=== PATIENT | female | born 1945 | race Caucasian/White ===

== ENCOUNTER → 2018-09-17 09:08 | Outpatient (CLI) | payer MEDICARE, OTHER, SELFPAY ==
--- NOTE | 2018-09-17 | DI.MRI.S_ITS ---
PROCEDURE: MR KNEE RT WO CON INDICATIONS: RIGHT ANTERIOR KNEE PAIN TECHNIQUE: Noncontrast sagittal PD fast spin echo and T2 fast spin echo with fat saturation, sagittal 3-D FLASH with fat saturation; coronal T1 spin echo and PD fast spin echo with fat saturation, and axial PD fast spin echo with fat saturation through the knee. COMPARISON: [facility] [place], CR, XR KNEE ARTHRITIC SERIES RT, 09/01/2018, 13:20. [facility], CR, XR BONE LENGTH SCANOGRAM, 09/17/2018, 10:06. FINDINGS: Image quality: Excellent. Menisci: There is mild fraying along the free edge of the lateral meniscus suggestive of minimal radial tearing. The medial meniscus demonstrates mild degenerative signal extending to the inferior articular surface in the posterior horn and free edge in the body suggestive of minimal degenerative tearing. The meniscal root ligaments appear intact. Cruciate ligaments: The anterior and posterior cruciate ligaments appear intact. Medial structures: The medial collateral ligament appears intact. The semimembranosus tendon insertions and meniscocapsular junction appear intact. Visualized portions of the pes anserinus tendons appear intact without associated bursal fluid collections. Lateral structures: The fibular collateral ligament is attenuated proximally at its origin consistent with sequelae of a mild sprain. The long and short heads of the biceps femoris tendon appear intact. The popliteus tendon appears intact. Iliotibial band appears normal. There is mild edema at the origin of the medial head of the gastrocnemius stress of a mild strain. Anterior structures: The quadriceps and patellar tendons appear intact. There is flattening of the articular surfaces along the patellofemoral compartment with shallow appearance of the trochlea. 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 Patellar alignment is grossly preserved. No edema in the infrapatellar fat pad. Bones and cartilage: No bone marrow contusions or fractures. There is severe cartilage thinning in the patellofemoral compartment with extensive full-thickness cartilage loss. There is associated subchondral edema and osteophytosis as well as bony remodeling. In the lateral compartment, there is mild cartilage thinning with chondral fissuring including a delaminating flap along the lateral tibial plateau. In the medial compartment, there is mild cartilage thinning and superficial chondral fraying. Joint space: There is a small joint effusion. No Pryor's cyst. IMPRESSION: 1. Dysplastic appearance of the trochlea with bony remodeling along the patellofemoral compartment associated with osteoarthritic changes including severe cartilage loss. 2. Cartilage degeneration in the lateral and medial compartments including a delaminating chondral flap along the lateral tibial plateau. 3. Mild tearing of the labrum as described. 4. Small joint effusion. Dictated by: Chencho Beck M.D. on 09/17/2018 at 14:54 Approved by: Chencho Beck M.D. on 09/17/2018 at 15:14
== END ==
PROVIDERS: PCP Registered Nurse; Visit Provider Orthopaedic Surgery
DX: M25.561 Pain in right knee (principal); S83.8X1A Sprain of other specified parts of right knee, initial encounter; M25.461 Effusion, right knee
CPT/HCPCS: 73721

== ENCOUNTER → 2018-12-10 11:08 | Outpatient (CLI) | payer MEDICARE, OTHER, SELFPAY ==
[2018-12-10 11:22] LABS: Bacteria Urine None Seen; RBC Urine None Seen (0-5/HPF); WBC Urine None Seen (0-5/HPF)
[2018-12-10 12:43] LABS: Add Manual Diff / Slide Review NO; Basophils Absolute Auto 0 /uL (0-100); Basophils Percent Auto 0.5 % (0-2); Eosinophils Absolute Auto 100 /uL (0-450); Eosinophils Percent Auto 2.2 % (2-4); Hematocrit 39.8 % (36-46); Hemoglobin 13.5 g/dL (12.0-16.0); Lymphocytes Absolute Auto 2100 /uL (1100-4500); Lymphocytes Percent Auto 36.9 % (25-40); Mean Corpuscular HGB Conc 33.9 % (30-36); Mean Corpuscular Hemoglobin 33.6 PG (26-34); Mean Corpuscular Volume 99.3 fL (80-100); Monocytes Absolute Auto 600 /uL (0-900); Monocytes Percent Auto 10.5 % (3-14); Neutrophils Absolute Auto 2800 /uL (1500-7000); Neutrophils Percent Auto 49.9 % (50-75); Platelet Count 232 X10^3/uL (150-400); Red Blood Cell Count 4.01 X10^6/uL (4.0-5.2); Red Cell Distribution Width 13.2 % (11.6-14.8); White Blood Cell Count 5.6 X10^3/uL (4.5-11.0)
[2018-12-10 12:53] LABS: Appearance Urine UA CLEAR; Bilirubin Urine UA NEGATIVE (NEGATIVE); Color Urine UA YELLOW; Glucose Urine UA NEGATIVE (Negative); Ketones Urine UA NEGATIVE (NEGATIVE); Leukocyte Esterase Urine UA NEGATIVE (NEGATIVE); Nitrite Urine UA NEGATIVE (Negative); Occult Blood Urine UA NEGATIVE (Negative); Protein Urine UA NEGATIVE (Negative); Urobilinogen Urine UA 0.2 E.U./dL (0.2)
[2018-12-10 12:55] LABS: Hemoglobin A1C% w Est Avg Glu 5.4 % (4.0-6.0)
[2018-12-10 12:56] LABS: BUN Creatinine Ratio 23.3 (6-22); Blood Urea Nitrogen 21 mg/dL (7-17); Calcium 9.6 mg/dL (8.4-10.2); Carbon Dioxide 28 mmol/L (22-32); Chloride 104 mmol/L (98-107); Estimated Glomerular Filt Rate > 60.0 mL/min (>60); Glucose 86 mg/dL (80-110); HEMOLYSIS < 15 (0-50); Potassium 4.7 mmol/L (3.4-5.1); Sodium 141 mmol/L (137-145)
[2018-12-10 13:14] LABS: pH Urine UA 6.5 (4.5-8.0)
[2018-12-10 13:15] LABS: Culture Indicated Urine Cult Not Indicated; Mucus Urine 3+ (Negative); Squamous Epithelial Cell Urine 0-1 /HPF (0-5/HPF)
== END ==
PROVIDERS: Family Provider Registered Nurse; PCP Registered Nurse; Visit Provider Orthopaedic Surgery
DX: Z01.818 Encounter for other preprocedural examination (principal); Z01.812 Encounter for preprocedural laboratory examination; N39.9 Disorder of urinary system, unspecified; Z13.1 Encounter for screening for diabetes mellitus; R73.9 Hyperglycemia, unspecified
CPT/HCPCS: 36415; 80048; 81001; 83036; 85025; 93005; 93010

== ENCOUNTER 2019-01-20 12:01 | Inpatient (IN) | payer MEDICARE, OTHER, SELFPAY ==
[2019-01-12 13:51] VITALS: BMI 25.8
[2019-01-20] VITALS (12 sets, daily range): BP systolic 106–123; BP diastolic 40–71; PULSE 67–79; RESP 12–18; TEMP 35.9–36.7; O2SAT 93–99; BMI 25.8
--- NOTE | 2019-01-20 06:00 | DI.RAD.S_ITS ---
PROCEDURE: XR KNEE RT 1TO2V INDICATIONS: post op TECHNIQUE: 3 view(s) of the knee acquired. [facility]IC SERIES LT, 09/29/2018, 15:37. FINDINGS: Bones: Patient is status post knee joint arthroplasty. Hardware components are in expected positions. Visualized bony structures are intact. Soft tissues: Overlying postoperative changes are noted. Expected postoperative changes within the overlying soft tissues are present there is a soft tissue air, edema, and fluid. A surgical drainage catheter is seen overlying the anterolateral margin of the knee. IMPRESSION: Expected postoperative changes related to a total right knee arthroplasty. Dictated by: Karan Jc M.D. on 01/20/2019 at 16:52 Approved by: Karan Jc M.D. on 01/20/2019 at 16:54
[2019-01-20] MEDS: LACTATED RINGERS 1,000 ML 42 ML IV ×2 (12:58→15:42)
[2019-01-20] MEDS: CELECOXIB 200 MG CAPSULE PO (13:02)
[2019-01-20] MEDS: PREGABALIN 75 MG CAPSULE PO (13:02)
[2019-01-20] MEDS: ACETAMINOPHEN 325 MG TABLET 975 MG PO ×2 (13:02→21:33)
[2019-01-20] MEDS: VANCOMYCIN 1,000 MG/200 ML PIGGYBACK 200 MG IV (13:50)
--- NOTE | 2019-01-20 14:49 | PM.PREOP ---
Pre-operative Note Interval Note History & Physical reviewed/Exam performed by Physician: Yes Changes to H&P: No
--- NOTE | 2019-01-20 14:50 | PM.OP.1 ---
Operative Date/Time/Diagnoses Date of procedure: 01/20/19 Time of procedure: 16:04 Pre-op diagnosis: Right knee OA Post-op diagnosis: same Procedure & Clinicians Procedure: Right total knee arthroplasty Same procedure as scheduled: Yes Indications: The patient has had progressively worsening right knee pain with radiographic changes consistent with arthritis. Non-operative management has failed and the patient has requested total knee replacement. The risks, benefits and alternatives to surgery were discussed with the patient prior to proceeding. Risks discussed included, but were not limited to, failure to relieve pain, stiffness, infection, nerve damage, deep venous thrombosis, pulmonary embolism, stroke, coma, heart attack, permanent paralysis and , as well as the potential need for eventual revision of the prosthetic. Surgeon: Ann Mayer Med Surg Rn: Barbara Jenkins Anesthesia Type: General and Spinal Operative Notes Findings: Severe right knee patellofemoral arthritis, adequate bone, good stability Closure Type: primary Specimen(s): none sent Prosthetic devices, grafts, tissues, transplants, or devices: Mayer and Nephew Kyleney BCS 2 size 4 femur, size 3 tibia,+9 poly, 32 x 7.5 patella Applied: drain(s) Estimated Blood Loss (mL): 250 Blood products transfused: none Tourniquet time (min): 65 Procedure in detail: The patient was seen in the pre-operative area, where the patient identified the right knee as the operative site and this was marked with my initials. The patient received pre-operative antibiotics, and was taken to the operating room and placed on the operative table in the supine position. After satisfactory anesthesia, a radio time salesperson out was performed. The right leg was encircled with a tourniquet about the proximal thigh, and the leg was prepared from the toes to the tourniquet with ChloroPrep in the usual fashion and draped through sterile drapes. The leg was elevated and exsanguinated with Eschmark bandage and the tourniquet inflated to [250] mmHg pressure. The knee was approached through an approximately 18 cm incision centered over the patella and carried into the knee through a medial parapatellar arthrotomy. A portion of the medial and lateral meniscus was resected. Soft tissue was carefully mobilized around the patella the patella was measured with a caliper. Bone was resected from the patella and the patellar height was reconstituted with up an appropriate sized patellar component. A cover was then placed on the patella. A small amount of additional medial and lateral meniscus was resected. The visionare guide fit well to the distal femur. It looked like an appropriate distal femoral cut and the cut was made without difficulty. The rotation was assessed and the appropriate size femoral guide was placed on the distal femur and finishing cuts were made. There was no evidence of notching. The anterior, posterior and chamfer cuts were then made. The posterior osteophytes and soft tissues were then removed. The posterior capsule was injected with part of a mixture of 60 ml 0.25% Marcaine mixed with 20 ml Exparel for post operative pain control. The remainder of this mixture was injected into the capsule and subcutaneous tissues during cement curing. The tibia was prepared and the visionaire guide fit well to the distal tibia. The rotation was assessed. The patient was placed in extension residual medial and lateral meniscus as well as any residual bone was carefully resected. [No] additional tibia was resected. Hemostasis was achieved especially posteriorly. Additional local was injected into the posterior capsule. The extension gap was assessed and additional releases for gap balancing were performed as necessary. It was checked with the gap neuro ophthalmologist. The femoral component was trial was placed and the notch was finished. Trial tibial and femoral components were then placed and the knee placed through a range of motion. Range of motion was [0-130], with good stability throughout the range. The trials were then removed, and the tibia was finished. The bone was prepared with pulsatile lavage, and dried with a sponge. Cement was applied and the final prosthetics placed. Excess cement was removed during and after cement curing. A brief Betadine soak was performed. After confirming there was no extruded cement posteriorly, the final tibial insert was placed. The knee was copiously irrigated and the tourniquet deflated. Hemostasis was obtained with the Bovie. A drain was placed and brought out superolaterally. The capsule was closed with interrupted Vicryl suture. The subcutaneous layer was closed with barbed sutures, and the skin with a running 3-0 V-Lock suture and Surgical glue. An Aquacel Ag dressing was applied and the patient was taken to recovery having tolerated the procedure well. Complications: none Post-operative Condition: stable Disposition: Acute Care Plan for aftercare: The patient will be maintained on a standard total knee replacement protocol with weight bearing as tolerated. The patient will receive aspirin and sequential compression devices for DVT prophylaxis. The patient will be discharged home when safe for the home environment.
[2019-01-20] MEDS: CEFAZOLIN 2 GM/100 ML FROZ.PIGGY IV ×2 (15:15→22:33)
[2019-01-20] MEDS: BUPIVACAINE LIPOSOME 266 MG/20 ML VIAL INJ (15:43)
[2019-01-20] MEDS: TRANEXAMIC ACID 1,000 MG VIAL 1000 MG INJ ×2 (15:43→15:58)
[2019-01-20] MEDS: BUPIVACAINE 0.25% W/ EPI 30 ML VIAL 60 ML INJ (15:43)
[2019-01-20] MEDS: SODIUM CHLORIDE IRRIG SOLUTION 250 ML, POVIDONE-IODINE SPONGE STICKS 1 APPLIC IRR (15:45)
--- NOTE | 2019-01-20 15:50 | SUR.OPER ---
Supine on padded OR bed. Pillow under head, arms secured on padded armboards <90 degree abduction. Safety belt across torso. Non-operative leg secured with tape over blanket over lower leg. Operative leg secured in DeMayo/Cody positioner. Foam padded brace at thigh of operative leg.
[2019-01-20] MEDS: LACTATED RINGERS 1,000 ML 125 ML IV (19:32)
[2019-01-20] MEDS: diphenhydrAMINE 50 MG/ML VIAL 25 MG IV (21:32)
[2019-01-20] MEDS: DOCUSATE 100 MG CAPSULE PO (21:33)
[2019-01-20] MEDS: DULOXETINE 30 MG CAPSULE 60 MG PO (21:33)
[2019-01-20] MEDS: MELATONIN 3 MG TABLET 6 MG PO (21:33)
[2019-01-20] MEDS: ASPIRIN EC 81 MG TABLET PO (21:33)
--- NOTE | 2019-01-20 23:44 | PC.NURSE ---
Evening Shift Note Patient has not voided this shift from last known void at 1400 prior to surgery, VSS, IV fluids and adequate oral intake. Patient attempted to void 2 times this shift on bedside commode and unsuccessful. Unable to bladder scan patient at 2200, PACU bladder scanner with battery and staff unable to locate batteries at the moment. journeyman molder aware and able to borrow bladder scanner from ED. Patient bladder scanned prior to this RN leaving by night clerk OPEN HEARTH DOOR LINER and patient with volume of 195. Encourage oral fluids and night clerk RN to follow up.
[2019-01-21] MEDS: LACTATED RINGERS 1,000 ML 125 ML IV (04:01)
[2019-01-21 04:15] VITALS: BP 125/74; PULSE 81; RESP 16; TEMP 36.9; O2SAT 95
[2019-01-21 05:53] LABS: Hematocrit 36.8 % (36-46); Hemoglobin 12.3 g/dL (12.0-16.0)
[2019-01-21] MEDS: LEVOTHYROXINE 25 MCG TABLET PO (06:39)
[2019-01-21] MEDS: CEFAZOLIN 2 GM/100 ML FROZ.PIGGY IV (06:40)
[2019-01-21 07:50] VITALS: BP 106/57; PULSE 71; RESP 16; TEMP 36.1; O2SAT 99
[2019-01-21] MEDS: ACETAMINOPHEN 325 MG TABLET 975 MG PO (08:30)
[2019-01-21] MEDS: DOCUSATE 100 MG CAPSULE PO (08:30)
[2019-01-21] MEDS: ASPIRIN EC 81 MG TABLET PO (08:30)
[2019-01-21] MEDS: PANTOPRAZOLE 20 MG TABLET PO (08:30)
[2019-01-21] MEDS: SODIUM CHLORIDE 0.9% FLUSH 10 ML IV (08:57)
[2019-01-21] MEDS: diphenhydrAMINE 50 MG/ML VIAL 25 MG IV (09:25)
--- NOTE | 2019-01-21 09:25 | CM.IDA ---
Discharge Planning/Care Management CM Discharge Assessment Start: 01/21/19 09:22 Freq: Status: Active Protocol: Document 01/21/19 09:22 JIMMY (Rec: 01/21/19 09:25 JIMMY [id number]) Discharge Planning Assessment Assigned Booky DENISE Kline DPOA/Assigned Designee Name Bre () Contact Information [phone] Advance Directives? Yes Advance Directives on File No History Provided By Patient Prior Living Arrangements House Household Members spouse Type of transporation used prior to Drives own vehicle admit Independent with ADL's Yes Is patient alert and oriented? Yes Patient/Family Preference OP PT Therapy Barriers to Discharge No Comment Pt has planned for DC home w/ spouse to assist. Therapy eval still pending, likely DC home today if pt able to progress today w/therapy team, outpt PT . Likely no barriers to safe DC home today. Discharge Plan Home Transportation Arrangement Family Referrals Initiated None needed Review Status In Process
--- NOTE | 2019-01-21 11:18 | PM.DS.1 ---
History of Present Illness History of Present Illness Date Patient Seen: 01/21/19 Time Patient Seen: 11:18 Chief complaint: [id number] Narrative: The patient has had progressively worsening right knee pain with radiographic changes consistent with arthritis. Non-operative management has failed and the patient has requested total knee replacement. The risks, benefits and alternatives to surgery were discussed with the patient prior to proceeding. Risks discussed included, but were not limited to, failure to relieve pain, stiffness, infection, nerve damage, deep venous thrombosis, pulmonary embolism, stroke, coma, heart attack, permanent paralysis and , as well as the potential need for eventual revision of the prosthetic. Discharge Providers Provider Date of admission: 01/20/19 12:01 Discharge Date: 01/21/19 Primary care physician: SIDNEY Reyes Consults: 01/12/19 14:41 Consult to Respiratory Therapy Evaluate & Treat Comment: INPT 01/20 LAURA-No CPAP Physician Instructions: Evaluate and treat 01/20/19 06:00 Consult to Anesthesiology Routine Comment: Consulting Provider: Anesthesiologist Reason for consultation: Regional block for post operative pain control 01/20/19 12:53 Consult to Respiratory Therapy Evaluate & Treat Comment: Physician Instructions: Evaluate and treat 01/20/19 18:18 Consult to Discharge Planning Routine Comment: Consult to Physical Therapy Evaluate & Treat Comment: Physician Instructions: postop TKA protocol Consult to Respiratory Therapy Evaluate & Treat Comment: Physician Instructions: Evaluate and treat Discharge provider: Nora Coe PA-C Summary Hospital Course Discharge Diagnosis: s/p right total knee arthroplasty GERD Migraines Depression Distant history of hepatitis, seronegative Depression Hospital Course: Amarilis presents for a right total knee arthroplasty with Dr. Mayer. Hospital course was unremarkable. On postop day 1. Patient was ready to discharge home. Drain removed prior to discharge. Dressing with CDI. She was eating and voiding without difficulty or assistance. ASA for DVT prophylaxis. She mobilized with physical therapy throughout her stay. She has her medications at home. Requesting Zofran for nausea. Status at Discharge Functional status at discharge: uses cane/walker Exam Vital Signs (past 8 hours): - 01/21/19 04:15 01/21/19 07:50 Temperature 98.4 F 97.0 F L Pulse Rate 81 71 Respiratory Rate 16 16 Blood Pressure 125/74 106/57 L Pulse Oximetry 95 99 Oxygen Delivery Method Room Air Oxygen Flow Rate 0 Narrative Exam Narrative: Patient is sitting at bedside chair in no acute distress. She is alert and oriented x3. Calves are soft, compressible, nontender bilaterally. Pulses are symmetrical. Right knee dressing CDI. Drain in place. She is able to actively dorsiflex plantar flex. No complaints of pain this morning. She is eager to go home today. Pain well controlled. Objective Labs Result Diagrams: 01/21/19 05:16 Labs: Laboratory Results - last 24 hr 01/21/19 05:16 Hgb 12.3 Hct 36.8 Discharge Plan Discharge Plan Patient Disposition: Home Discharge Med Rec/Prescriptions Prescriptions: New acetaminophen 325 mg Tablet 975 mg PO TID Qty: 60 RF: 0 aspirin 81 mg Tablet,Delayed Release (Dr/Ec) 81 mg PO BID Qty: 60 RF: 0 docusate sodium [DOK] 100 mg Capsule 100 mg PO BID Qty: 60 RF: 0 oxycodone 5 mg Tablet 5 mg PO Q3HR PRN (Reason: Pain, Moderate (4-6)) Qty: 10 RF: 0 ondansetron HCl [Zofran] 4 mg tablet 4 mg PO Q8H PRN (Reason: nausea and vomiting) Qty: 20 RF: 0 Continued levothyroxine 25 mcg Tablet 25 mcg PO DAILY Qty: 0 RF: 0 Aimovig Autoinjector (2 Pack) 70 mg/mL auto-injector 140 mg SUBCUT QMONTH Qty: 1 RF: 11 nystatin 100,000 unit/gram cream 1 applictn TOP BID PRN (Reason: Rash) RF: 0 [CMP ESTRIOL CREAM] 0.2 % Vaginal PRN PRN (Reason: Vaginal Dryness) RF: 0 melatonin 3 mg Tablet 6 mg PO BEDTIME RF: 0 omeprazole 20 mg Capsule,Delayed Release(Dr/Ec) 20 mg PO DAILY RF: 0 duloxetine 60 mg Capsule,Delayed Release(Dr/Ec) 60 mg PO BEDTIME RF: 0 Follow up/Referrals: Morena Mendez ARNP [Primary Care Provider] - Ann Mayer MD [Physician] - Provider Discharge Instructions Cold/Heat Therapy: as needed Skin/Wound/Dressing Care Report to your healthcare provider any signs of infection, such as:: chills, fever and increased pain Dressing: as needed Visit Report/Discharge Packet Instructions: DI for Knee Replacement Discharge Data Primary Care Provider: Morena Mendez VTE Deep Vein Thrombosis/Pulmonary Embolism Present on Admission: No
[2019-01-21 11:25] VITALS: BP 99/49; PULSE 73; RESP 16; TEMP 37; O2SAT 97
--- NOTE | 2019-01-21 11:36 | PT.IIE ---
Current Diagnoses Unilateral primary osteoarthritis, right knee (01/20/19) Surgery Performed Operation Date: 01/20/19 14:15 Actual Procedures p Total Knee Arthroplasty(Right) - Ann Mayer MD Surgical History (Last Updated 01/12/19 @ 14:19 by Shira Fletcher RN) History of arthroplasty of left knee (Acute ~2008) History of surgery (Acute) History of third molar tooth extraction Hx of bilateral cataract extraction (Acute) Medical History (Last Updated 01/12/19 @ 14:21 by Shira Fletcher RN) Depression (Acute) GERD (gastroesophageal reflux disease) (Acute) Hearing impaired (Acute) Hepatitis (Acute ~1972) HLD (hyperlipidemia) (Acute) Hypothyroidism (Acute) Migraines (Acute) Pneumonia (Acute ~1987) SCC (squamous cell carcinoma) (Acute) Sleep apnea (Acute) 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 Able to make needs known. Mobility and Gait Pt was I with mobility and ambulation prior to surgery. Pt notes that she moved slowly d/t pain in knee. Activities of Daily Living and IADL's Pt was I with ADLs and IADLs prior to surgery. Prior Functional Level (Other details) Pt was able to drive. Pt notes that she is still very active . Social History Household Members spouse Living Arrangements House Number of Floors (Floors) One Floor Number of Stairs To Enter/Railing? 2 [place], no railing. Home Environment Standard Height Toilet,Walk in Shower Home Equipment Front Wheel Walker,Straight Cane,Crutches,Raised Toilet Seat w/Armrests,Hand Held Shower,Grab Bars In Shower Employment Status Retired Additional Social History Comment Pt lives in one story home on [facility] with spouse Bre. Pt's sister in law lives nearby and is a PT. She will be available to help pt return home. Pt has 2 [place]Y house either from front or garage, both without railings. Pt has multiple ADs that have been fitted for her. Pt has a raised toilet seat with armrests that can double as a shower seat. M2 PT-IP Current Condition Start: 01/21/19 08:13 Freq: NEEDED Status: Active Protocol: Document 01/21/19 09:53 JG (Rec: 01/21/19 11:19 JG [id number]) Physical Therapy Current Condition Current Condition Evaluation Date 01/21/19 Treatment Diagnosis R TKA, difficulty walking, limited activity tolerance Onset Date 01/20/19 Weight Bearing Status Weight Bearing Status Weight Bear as Tolerated M3 PT-IP Subjective Start: 01/21/19 08:13 Freq: NEEDED Status: Active Protocol: Document 01/21/19 09:53 JG (Rec: 01/21/19 11:19 JG [id number]) Subjective Physical Therapy Visit Type Type Initial Evaluation Visit Start Time 09:53 Visit Stop Time 10:22 Total Visit Minutes 29 Notes IE led by ELIZABETH Sandoval, supervised by PT Michelet Number of REFINERY OPERATOR LIGHT ENDS RECOVERY Visits 0 Physical Therapy Visit Comments Patient Comments I am actually feeling really good. I feel like I am ready to go home. Patient Goals Get up and moving, return home Therapy Pain Assessment Pain When Pain Assessed At Rest Pain Present Pain Present Denied Pain M4 PT-IP Mobility and Gait Start: 01/21/19 08:13 Freq: NEEDED Status: Active Protocol: Document 01/21/19 09:53 JG (Rec: 01/21/19 11:19 JG [id number]) PT-Bed Mobility Assessment Rolling Type of Rolling Roll to Left Level of Assist Standby Assistance Supine to Sit Supine to Sit Standby Assistance Scooting Scooting to Edge of Bed Standby Assistance PT-Transfer Assessment Sit to and From Stand Sit to and from Stand Standby Assistance Equipment Transfer Assistive Device Gait Belt,Front Wheeled Walker Orthotic/Prosthetic Devices or Brace: No Transfers Transfer Destination Chair,Toilet Transfer Technique Stand Step Pivot Transfer Ability Level of Assist Standby Assistance,Contact Guard Assistance Comments Mobility Comments Pt in bed upon assessment. Resting BP 110/68. Pt stated that she needed to go to the bathroom. Pt was SBA for all bed mobility and CGA for sit to stand and ambulation to toilet. Pt able to perform self care with CGA for balance . Pt then able to ambulate ~ 250 ft with gait 90% WNL and SBA. Pt ambulated with step through gait pattern and slightly excess L sided weight shift. Pt transferred to chair at end of session with SBA. Pt left in chair with call light and needs within reach. Gait Assessment Gait Gait Assistance Required: Standby Assistance,Contact Guard Assist Distance (Feet) 250 Able to Maintain Weight Bearing Status Yes During Gait Assistive Devices Assistive Device Gait Belt,Front Wheeled Walker Orthotic/Prosthetic Devices or Brace: No Gait Deviations General Gait Pattern Antalgic,Lateral Trunk Lean Factors Limiting Gait Function Factors Limiting Gait Function Decreased Activity Tolerance, Limited Range of Motion,Poor Balance Comments Gait Comments see mobility section Stair Climbing Assessment Evaluation Level of Assist On Stairs Contact Guard Assistance, Minimal Assistance Devices Stair Climbing Assistive Devices Right Railing Technique/Endurance Stair Climbing Direction Ascend and Descend Stair Climbing Technique Step to Step Number of Steps Climbed 3 Query Text: Stair Climbing Set # Repetitions (reps) 4 Comments Stair Climbing Comments Pt educated to complete stairs using up with the good, down with the bad step to gait pattern. Pt able to ascend stairs with initial OPERATION MANAGER f/b CGA for last 2 rounds. Pt demonstrated initial LOB during first step descent of stairs using OPERATION MANAGER but able to self correct. Pt then used railing as well as OPERATION MANAGER for initial rounds. With cuing to activate quadriceps to help stabilize after placing R leg during descent, pt able to descend with OPERATION MANAGER but no railing. PT-Balance Assessment Sitting Balance and Reactions Static Sitting Balance Ability Good Dynamic Sitting Balance Ability Good Standing Balance and Reactions Static Standing Balance Ability Good Dynamic Standing Balance Ability Good Device Used FWW M5 PT-IP Objective Assessments Start: 01/21/19 08:13 Freq: NEEDED Status: Active Protocol: Document 01/21/19 09:53 Marcel (Rec: 01/21/19 11:19 Marcel [id number]) Orientation Orientation/Cognition Level of Alertness Alert Orientation Name,Age,Birthday,Month,Date, Year,Day of Week,Place, Situation Language Function Ability No Deficits Noted Safety Awareness Understands Safety Issues Memory Description No Deficits Noted Comments No noted cognitive or communication deficits. Pt demonstrated good safety awareness. Gross Range of Motion Upper Extremity ROM Assessment Within Functional Limits Lower Extremity ROM Assessment Right Impaired Strength Upper Extremity Strength Assessment Within Functional Limits Lower Extremity Strength Assessment Right Impaired M6 PT-IP Treatment Start: 01/21/19 08:13 Freq: NEEDED Status: Active Protocol: Document 01/21/19 09:53 JG (Rec: 01/21/19 11:19 JG [id number]) Physical Therapy Treatment Education Education Provided Weight Bearing Status,Post-Op Packet,Safety Other Treatments Other Treatment Performed Educated pt and caregiver on navigating stairs and how to assist. M7 PT-IP Assessment and Plan Start: 01/21/19 08:13 Freq: NEEDED Status: Active Protocol: Document 01/21/19 09:53 JG (Rec: 01/21/19 11:19 JG [id number]) PT Summary Assessment and Plan Potential Rehabilitation Potential Excellent Status of Condition at Evaluation Stable Summary Impairments Pain,Strength,Balance, Transfers,Gait,Activity Tolerance Progress Towards Goals Safe For Discharge Assessment Summary Pt is 73 yo female 1 day s/p R TKA. Pt reports I PLOF and has good social support at home from spouse Bre and sister in law who is a PT. Pt also has OP PT scheduled starting on 01/24/19. Pt required no more than SBA for bed mobility and initial CGA for transfers. Pt did require min A with OPERATION MANAGER for descent of stairs to prevent LOB. Disc with pt's spouse how to assist and pt's sister in law will be available to help them return home. Pt safe for discharge to home with assist once medically cleared. Frequency of Treatment Frequency Of Treatment Discharge Recommendations To Nursing Amount of Assist Needed Standby Assistance Discharge Recommendations PT Discharge Recommendations Home with Assistance, Outpatient PT
--- NOTE | 2019-01-21 11:39 | PT.IIE ---
Current Diagnoses Unilateral primary osteoarthritis, right knee (01/20/19) Surgery Performed Operation Date: 01/20/19 14:15 Actual Procedures p Total Knee Arthroplasty(Right) - Ann Mayer MD Surgical History (Last Updated 01/12/19 @ 14:19 by Shira Fletcher RN) History of arthroplasty of left knee (Acute ~2008) History of surgery (Acute) History of third molar tooth extraction Hx of bilateral cataract extraction (Acute) Medical History (Last Updated 01/12/19 @ 14:21 by Shira Fletcher RN) Depression (Acute) GERD (gastroesophageal reflux disease) (Acute) Hearing impaired (Acute) Hepatitis (Acute ~1972) HLD (hyperlipidemia) (Acute) Hypothyroidism (Acute) Migraines (Acute) Pneumonia (Acute ~1987) SCC (squamous cell carcinoma) (Acute) Sleep apnea (Acute) 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 Able to make needs known. Mobility and Gait Pt was I with mobility and ambulation prior to surgery. Pt notes that she moved slowly d/t pain in knee. Activities of Daily Living and IADL's Pt was I with ADLs and IADLs prior to surgery. Prior Functional Level (Other details) Pt was able to drive. Pt notes that she is still very active . Social History Household Members spouse Living Arrangements House Number of Floors (Floors) One Floor Number of Stairs To Enter/Railing? 2 [place], no railing. Home Environment Standard Height Toilet,Walk in Shower Home Equipment Front Wheel Walker,Straight Cane,Crutches,Raised Toilet Seat w/Armrests,Hand Held Shower,Grab Bars In Shower Employment Status Retired Additional Social History Comment Pt lives in one story home on [facility] with spouse Bre. Pt's sister in law lives nearby and is a PT. She will be available to help pt return home. Pt has 2 [place] house either from front or garage, both without railings. Pt has multiple ADs that have been fitted for her. Pt has a raised toilet seat with armrests that can double as a shower seat. M2 PT-IP Current Condition Start: 01/21/19 08:13 Freq: NEEDED Status: Active Protocol: Document 01/21/19 09:53 JG (Rec: 01/21/19 11:19 JG [id number]) Physical Therapy Current Condition Current Condition Evaluation Date 01/21/19 Treatment Diagnosis R TKA, difficulty walking, limited activity tolerance Onset Date 01/20/19 Weight Bearing Status Weight Bearing Status Weight Bear as Tolerated M3 PT-IP Subjective Start: 01/21/19 08:13 Freq: NEEDED Status: Active Protocol: Document 01/21/19 09:53 JG (Rec: 01/21/19 11:19 JG [id number]) Subjective Physical Therapy Visit Type Type Initial Evaluation Visit Start Time 09:53 Visit Stop Time 10:22 Total Visit Minutes 29 Notes IE led by ELIZABETH Sandoval, supervised by PT Michelet Number of AIRPLANE TECHNICIAN Visits 0 Physical Therapy Visit Comments Patient Comments I am actually feeling really good. I feel like I am ready to go home. Patient Goals Get up and moving, return home Therapy Pain Assessment Pain When Pain Assessed At Rest Pain Present Pain Present Denied Pain M4 PT-IP Mobility and Gait Start: 01/21/19 08:13 Freq: NEEDED Status: Active Protocol: Document 01/21/19 09:53 JG (Rec: 01/21/19 11:19 JG [id number]) PT-Bed Mobility Assessment Rolling Type of Rolling Roll to Left Level of Assist Standby Assistance Supine to Sit Supine to Sit Standby Assistance Scooting Scooting to Edge of Bed Standby Assistance PT-Transfer Assessment Sit to and From Stand Sit to and from Stand Standby Assistance Equipment Transfer Assistive Device Gait Belt,Front Wheeled Walker Orthotic/Prosthetic Devices or Brace: No Transfers Transfer Destination Chair,Toilet Transfer Technique Stand Step Pivot Transfer Ability Level of Assist Standby Assistance,Contact Guard Assistance Comments Mobility Comments Pt in bed upon assessment. Resting BP 110/68. Pt stated that she needed to go to the bathroom. Pt was SBA for all bed mobility and CGA for sit to stand and ambulation to toilet. Pt able to perform self care with CGA for balance . Pt then able to ambulate ~ 250 ft with gait 90% WNL and SBA. Pt ambulated with step through gait pattern and slightly excess L sided weight shift. Pt transferred to chair at end of session with SBA. Pt left in chair with call light and needs within reach. Gait Assessment Gait Gait Assistance Required: Standby Assistance,Contact Guard Assist Distance (Feet) 250 Able to Maintain Weight Bearing Status Yes During Gait Assistive Devices Assistive Device Gait Belt,Front Wheeled Walker Orthotic/Prosthetic Devices or Brace: No Gait Deviations General Gait Pattern Antalgic,Lateral Trunk Lean Factors Limiting Gait Function Factors Limiting Gait Function Decreased Activity Tolerance, Limited Range of Motion,Poor Balance Comments Gait Comments see mobility section Stair Climbing Assessment Evaluation Level of Assist On Stairs Contact Guard Assistance, Minimal Assistance Devices Stair Climbing Assistive Devices Right Railing Technique/Endurance Stair Climbing Direction Ascend and Descend Stair Climbing Technique Step to Step Number of Steps Climbed 3 Query Text: Stair Climbing Set # Repetitions (reps) 4 Comments Stair Climbing Comments Pt educated to complete stairs using up with the good, down with the bad step to gait pattern. Pt able to ascend stairs with initial FARM WORKER f/b CGA for last 2 rounds. Pt demonstrated initial LOB during first step descent of stairs using FARM WORKER but able to self correct. Pt then used railing as well as FARM WORKER for initial rounds. With cuing to activate quadriceps to help stabilize after placing R leg during descent, pt able to descend with FARM WORKER but no railing. PT-Balance Assessment Sitting Balance and Reactions Static Sitting Balance Ability Good Dynamic Sitting Balance Ability Good Standing Balance and Reactions Static Standing Balance Ability Good Dynamic Standing Balance Ability Good Device Used FWW M5 PT-IP Objective Assessments Start: 01/21/19 08:13 Freq: NEEDED Status: Active Protocol: Document 01/21/19 09:53 Marcel (Rec: 01/21/19 11:19 Marcel [id number]) Orientation Orientation/Cognition Level of Alertness Alert Orientation Name,Age,Birthday,Month,Date, Year,Day of Week,Place, Situation Language Function Ability No Deficits Noted Safety Awareness Understands Safety Issues Memory Description No Deficits Noted Comments No noted cognitive or communication deficits. Pt demonstrated good safety awareness. Gross Range of Motion Upper Extremity ROM Assessment Within Functional Limits Lower Extremity ROM Assessment Right Impaired Strength Upper Extremity Strength Assessment Within Functional Limits Lower Extremity Strength Assessment Right Impaired M6 PT-IP Treatment Start: 01/21/19 08:13 Freq: NEEDED Status: Active Protocol: Document 01/21/19 09:53 JG (Rec: 01/21/19 11:19 JG [id number]) Physical Therapy Treatment Education Education Provided Weight Bearing Status,Post-Op Packet,Safety Other Treatments Other Treatment Performed Educated pt and caregiver on navigating stairs and how to assist. M7 PT-IP Assessment and Plan Start: 01/21/19 08:13 Freq: NEEDED Status: Active Protocol: Document 01/21/19 09:53 JG (Rec: 01/21/19 11:19 JG [id number]) PT Summary Assessment and Plan Potential Rehabilitation Potential Excellent Status of Condition at Evaluation Stable Summary Impairments Pain,Strength,Balance, Transfers,Gait,Activity Tolerance Progress Towards Goals Safe For Discharge Assessment Summary Pt is 73 yo female 1 day s/p R TKA. Pt reports I PLOF and has good social support at home from spouse Bre and sister in law who is a PT. Pt also has OP PT scheduled starting on 01/24/19. Pt required no more than SBA for bed mobility and initial CGA for transfers. Pt did require min A with FARM WORKER for descent of stairs to prevent LOB. Disc with pt's spouse how to assist and pt's sister in law will be available to help them return home. Pt safe for discharge to home with assist once medically cleared. Frequency of Treatment Frequency Of Treatment Discharge Recommendations To Nursing Amount of Assist Needed Standby Assistance Discharge Recommendations PT Discharge Recommendations Home with Assistance, Outpatient PT
--- NOTE | 2019-01-21 13:14 | PC.NURSE ---
Pt is dressed and ready for discharge home with S.O. Reviewed d/c instructions with Pt-discussed d/c meds, time of last dose, reviewed stroke education, cold therapy, s/s of infection, and follow up. Pt denies further questions and was taken out via w/c by STRAW HAT BRIM RAISER OPERATOR to POV with Spouse and all belongings.
== END 2019-01-21 13:16 | disposition home or self-care (01) | DRG 470 ==
PROVIDERS: Admitting Provider Orthopaedic Surgery; Family Provider Registered Nurse; PCP Registered Nurse; Visit Provider Orthopaedic Surgery
PROC: 0SRC0JZ Replacement of Right Knee Joint with Synthetic Substitute, Open Approach (ICD-10-PCS; CPT 27447; principal; 2019-01-20 14:15)
DX: M17.11 Unilateral primary osteoarthritis, right knee (principal); K21.9 Gastro-esophageal reflux disease without esophagitis; F32.9 Major depressive disorder, single episode, unspecified; Z87.891 Personal history of nicotine dependence; Z96.652 Presence of left artificial knee joint
CPT/HCPCS: 36415; 73560; 85014; 85018; 94762; 97161; 97530; C1776; C9290; J0690; J1100; J1200; J2250; J2274; J2405; J2704; J3010